=== PATIENT | female | born 1965 | race African-American/Black ===

== ENCOUNTER 2021-11-25 16:27 | Emergency (ER) | payer BC ==
[2021-11-25] MEDS ORDERED: Ketorolac Tromethamine 30 MG/ML VIAL ONE (19:24)
== END 2021-11-25 20:58 | disposition home or self-care (01) ==
LOC: CSHERS 16:27
DX: M25.512 Pain in left shoulder (principal)
CPT/HCPCS: 96372; J1885

== ENCOUNTER 2023-07-24 15:12 | Outpatient (CLI) | payer BC | END 2023-07-24 15:13 | disposition home or self-care (01) | LOC: CSHMAMMO 15:12 | PROVIDERS: ATTEND Family Medicine | DX: Z12.31 Encounter for screening mammogram for malignant neoplasm of breast (principal); Z80.3 Family history of malignant neoplasm of breast | CPT/HCPCS: 77063; 77067 ==